=== PATIENT | female | born 1960 | race Caucasian/White ===

== ENCOUNTER → 2016-07-03 | Outpatient (CLI) | payer BC ==
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
== END | disposition home or self-care (01) ==
LOC: RAD 13:45
PROVIDERS: ATTEND Chiropractor
DX: M41.86 Other forms of scoliosis, lumbar region (principal); M54.2 Cervicalgia; M54.5 Low back pain
CPT/HCPCS: 72040; 72100